=== PATIENT | female | born 1945 | race Caucasian/White ===

== ENCOUNTER 2017-12-26 11:19 | Emergency (ER) | payer MEDICARE, OTHER ==
[2017-12-26 11:19] VITALS: BMI 27.7
--- NOTE | 2017-12-26 11:45 | ED PDOC ---
Arrival/HPI - General Time Seen by Provider: 12/26/17 11:40 Historian: Patient - History of Present Illness Narrative History of Present Illness (Text): 12/26/17 11:41 72 year old female, pmh including dm, nkda, complaining of need to bring her sugar done. Pt. stated that she is insulin dependent diabetes, missed a dose of insulin yesterday, stated that she check her finger stick and noted to be elevated, no chest pain/abdominal pain/nausea/vomiting/diarrhea, no night sweat, no dizziness, no change in vision, no numbness or tingling, no palpitation, no other medical or psychological complaints. Past Medical History - Provider Review Nursing Documentation Reviewed: Yes - Infectious Disease Hx of Infectious Diseases: None - Tetanus Immunization Tetanus Immunization: Unknown - Cardiac Hx Hypertension: Yes Other/Comment: varicose veins ble - Pulmonary Hx Respiratory Disorders: No - Neurological Hx Neurological Disorder: Yes Hx Alzheimer's Disease: Yes (pt aware of sx per son pt answers questions appropriately) - HEENT Hx HEENT Disorder: Yes Hx Cataracts: Yes - Renal Hx Renal Disorder: No - Endocrine/Metabolic Hx Endocrine Disorders: Yes Hx Diabetes Mellitus Type 2: Yes - Hematological/Oncological Hx Blood Disorders: No - Integumentary Hx Dermatological Disorder: No - Musculoskeletal/Rheumatological Hx Musculoskeletal Disorders: Yes Hx Falls: Yes Hx Osteoarthritis: Yes Hx Unsteady Gait: Yes Other/Comment: hammertoes - Gastrointestinal Hx Gastrointestinal Disorders: Yes Hx Gall Bladder Disease: Yes - Genitourinary/Gynecological Hx Genitourinary Disorders: Yes Hx Incontinence: Yes - Psychiatric Hx Psychophysiologic Disorder: Yes Hx Emotional Abuse: No Hx Hallucinations: Yes Hx Physical Abuse: No Hx Schizophrenia: Yes Hx Substance Use: No - Surgical History Hx Breast Biopsy: Yes (bilat) Hx Cataract Extraction: Yes (RT. EYE WITH IOLI) Hx Cholecystectomy: Yes - Anesthesia Hx Anesthesia: Yes Hx Anesthesia Reactions: No Hx Malignant Hyperthermia: No - Suicidal Assessment Feels Threatened In Home Enviroment: No Family/Social History - Physician Review Nursing Documentation Reviewed: Yes Family/Social History: Unknown Family HX Smoking Status: Never Smoked Hx Alcohol Use: No Hx Substance Use: No Hx Substance Use Treatment: No Allergies/Home Meds Allergies/Adverse Reactions: Allergies No Known Allergies Allergy (Verified 12/26/17 11:43) Home Medications: Home Meds Medication Instructions Recorded Confirmed Metformin/Glimepride 1 tab PO DAILY 03/13/16 12/26/17 Review of Systems - Review of Systems Constitutional: absent: Fatigue, Fevers Eyes: absent: Vision Changes ENT: absent: Hearing Changes Respiratory: absent: SOB, Cough Cardiovascular: absent: Chest Pain Gastrointestinal: absent: Abdominal Pain, Diarrhea, Nausea, Vomiting Musculoskeletal: absent: Arthralgias, Back Pain Skin: absent: Rash, Pruritis, Skin Lesions Neurological: absent: Headache, Dizziness Psychiatric: absent: Anxiety, Depression, Suicidal Ideation Physical Exam Vital Signs Reviewed: Yes Temperature: Afebrile Blood Pressure: Normal Pulse: Bradycardic Respiratory Rate: Normal Appearance: Positive for: Well-Appearing, Non-Toxic, Comfortable Pain Distress: None Mental Status: Positive for: Alert and Oriented X 3 - Systems Exam Head: Present: Atraumatic, Normocephalic Pupils: Present: PERRL Extroacular Muscles: Present: EOMI Conjunctiva: Present: Normal Mouth: Present: Moist Mucous Membranes Neck: Present: Normal Range of Motion Respiratory/Chest: Present: Clear to Auscultation, Good Air Exchange. No: Respiratory Distress, Accessory Muscle Use Cardiovascular: Present: Regular Rate and Rhythm, Normal S1, S2. No: Murmurs Abdomen: No: Tenderness, Distention, Peritoneal Signs Back: Present: Normal Inspection Upper Extremity: Present: Normal Inspection. No: Cyanosis, Edema Lower Extremity: Present: Normal Inspection. No: Edema Neurological: Present: GCS=15, CN II-XII Intact, Speech Normal Skin: Present: Warm, Dry, Normal Color. No: Rashes Psychiatric: Present: Alert, Oriented x 3, Normal Insight, Normal Concentration Medical Decision Making ED Course and Treatment: 12/26/17 11:54 -Labs -IVF and insulin -Observe and reassess 12/26/17 13:30 -Labs are non-significant except glucose 345 (IVF and insulin ordered). -Pt. is asymptomatic, no signs of DKA. -Repeated FS 279. -All labs and radiology results discussed with the patient, pt. is asymptomatic, will discharge home. -Discharge home with education on continue all your medication, follow up with your own pmd within 2 days, return to the Emergency room for any new or worsening signs or symptoms. - PA / FORESTRY HUNTER / Resident Statement MD/DO has reviewed & agrees with the documentation as recorded. Disposition/Present on Arrival - Present on Arrival Any Indicators Present on Arrival: No History of DVT/PE: No History of Uncontrolled Diabetes: No Urinary Catheter: No History of Decub. Ulcer: No History Surgical Site Infection Following: None - Disposition Have Diagnosis and Disposition been Completed?: Yes Diagnosis: Hyperglycemia Disposition: HOME/ ROUTINE Disposition Time: 13:32 Patient Plan: Discharge Condition: GOOD Additional Instructions: -Discharge home with education on continue all your medication, follow up with your own pmd within 2 days, return to the Emergency room for any new or worsening signs or symptoms. Referrals: Amos Galindo MD [Primary Care Provider] - Follow up with primary Cam,Lennie Magallanes MD [Medical Doctor] - Follow up with primary Forms: WORK NOTE
[2017-12-26] MEDS ORDERED: Insulin Regular 1 UNITS/0.01 ML ML SC STA (11:47)
[2017-12-26] MEDS ORDERED: Sodium Chloride 0.9% 500 ML IV STA (11:47)
[2017-12-26 11:51] VITALS: RESP 18
[2017-12-26 12:27] LABS: BASO # 0.01 K/mm3 (0.0-2.0); BASO % 0.1 % (0.0-3.0); EOS # 0.1 (0.0-0.7); GRAN # 7.45 (1.4-6.5); GRAN % 69.7 % (50.0-68.0); HEMOGLOBIN 13.2 g/dL (12.0-16.0); LYMPH # 2.7 (1.2-3.4); LYMPH % 25.2 % (22.0-35.0); MEAN CELL VOLUME 85.8 fl (80.0-105.0); MEAN CORPUSCULAR HEMOGLOBIN 27.6 pg (25.0-35.0); MEAN CORPUSCULAR HGB CONC 32.2 g/dl (31.0-37.0); MEAN PLATELET VOLUME 13.1 fl (7.0-11.0); MONO # 0.4 (0.1-0.6); RBC 4.78 10^6/uL (3.5-6.1); RED CELL DISTRIBUTION WIDTH 13.8 % (11.5-14.5); WHITE BLOOD COUNT 10.7 10^3/ul (4.5-11.0)
[2017-12-26 12:47] LABS: ALB/GLOB RATIO 1.3 (1.1-1.8); ALBUMIN 4.4 g/dL (3.0-4.8); ALT/SGPT 26 U/L (7-56); AST/SGOT 26 U/L (14-36); BLOOD UREA NITROGEN 16 mg/dL (7-21); GFR NON-AFRICAN AMERICAN > 60
[2017-12-26 14:15] VITALS: BP 135/79; PULSE 78; TEMP 98.6; O2SAT 99
== END 2017-12-26 13:30 | disposition home or self-care (01) ==
LOC: ED 11:19
DX: E11.65 Type 2 diabetes mellitus with hyperglycemia (principal); Z79.4 Long term (current) use of insulin; I10 Essential (primary) hypertension; G30.9 Alzheimer's disease, unspecified
CPT/HCPCS: 80053; 82948; 85025; 96360; 96372; 99283; J7040